=== PATIENT | male | born 1980 | race Caucasian/White ===

== ENCOUNTER 2018-10-28 16:24 | Emergency (ER) | payer SELFPAY ==
[2018-10-28] MEDS ORDERED: Ondansetron 4 MG/2 ML SDV IVPUSH ONE (16:47)
[2018-10-28] MEDS ORDERED: Sodium Chloride 0.9% 1,000 ML IV ONE (16:53)
--- NOTE | 2018-10-28 17:01 | EDM.PDOC ---
ED HPI GENERAL MEDICAL PROBLEM - General Chief Complaint: Abdominal Pain Stated Complaint: ABDOMINAL PAIN Time Seen by Provider: 10/28/18 16:27 Source of Information: Reports: Patient History Limitations: Reports: No Limitations - History of Present Illness INITIAL COMMENTS - FREE TEXT/NARRATIVE: HISTORY AND PHYSICAL: History of present illness: Patient is a 38-year-old male presents to the ED today with concern of right lower quadrant pain over the past 2 days. Patient states he did have a one episode of bright red blood bowel movement on Friday. Patient denies any blood in the stool since then. Patient states his bowel movements have been normal for him and then other than the right lower quadrant pain he hasn't had any other symptoms. He states that the pain comes and goes and currently rates it a 5 out of 10. Patient denies any prior abdominal surgeries. Patient denies any health history. Patient denies fever, chills, chest pain, shortness of breath, or cough. Denies headache, neck stiff ness, change in vision, syncope, or near syncope. Denies nausea, vomiting, diarrhea, constipation, or dysuria. Has not noted any blood in urine or stool. Patient has been eating and drinking appropriately. Review of systems: As per history of present illness and below otherwise all systems reviewed and negative. Past medical history: As per history of present illness and as reviewed below otherwise noncontributory. Surgical history: As per history of present illness and as reviewed below otherwise noncontributory. Social history: See social history for further information Family history: As per history of present illness and as reviewed below otherwise noncontributory. Physical exam: General: Patient is alert, oriented, and in no acute distress. Patient sitting comfortably on exam table. HEENT: Atraumatic, normocephalic, pupils equal and reactive bilaterally, negative for conjunctival pallor or scleral icterus, mucous membranes moist, TMs normal bilaterally, throat clear, neck supple, nontender, trachea midline. No drooling or trismus noted. No meningeal signs. No hot potato voice noted. Lungs: Clear to auscultation, breath sounds equal bilaterally, chest nontender. Heart: S1S2, regular rate and rhythm without overt murmur Abdomen: Soft, nondistended. Mild pain to palpation of the right lower quadrant without guarding. Negative for masses or hepatosplenomegaly. Negative for costovertebral tenderness. Pelvis: Stable nontender. Genitourinary: Deferred. Rectal: Deferred. Skin: Intact, warm, dry. No lesions or rashes noted. Extremities: Atraumatic, negative for cords or calf pain. Neurovascular unremarkable. Neuro: Awake, alert, oriented. Cranial nerves II through XII unremarkable. Cerebellum unremarkable. Motor and sensory unremarkable throughout. Exam nonfocal. Notes: Dr. Toure verbally involved in patient care. Patient denies anal intercourse / penetration. Discussed cyst of kidney and follow up with primary care, Consult to Dr. Villaseñor. Per Dr. Villaseñor, start patient on Flagyl, obtain stool cultures outpatient and have results sent to her for follow up with her in 2 weeks. Patient provided with stool collection supplies. Discussed this with patient. Voices understanding and is agreeable to plan of care. Denies any further questions or concerns at this time. Diagnostics: CBC, CMP, UA, EKG, lipase, abdominal pelvic CT, Hemoccult Therapeutics: Normal saline, Zofran Prescription: Flagyl, Stool Studies script and supplies Impression: Rectum thickening, probable proctitis Plan: 1. Take medication as prescribed. Stool study collection supplies have been provided to you, return these to the outpatient lab after sample. 2. Follow-up with general surgery, Dr. Villaseñor, as discussed. Return to the ED as needed and as discussed. 3. Tylenol as directed for pain and discomfort. Definitive disposition and diagnosis as appropriate pending reevaluation and review of above. lower abdomen Pain Score (Numeric/FACES): 6 - Related Data Allergies Allergy/AdvReac Type Severity Reaction Status Date / Time No Known Allergies Allergy Verified 10/28/18 16:34 Home Meds: Home Meds Pantoprazole [ProTONIX] 40 mg PO DAILY 10/28/18 [History] atorvaSTATin [Lipitor] 20 mg PO DAILY 10/28/18 [History] Past Medical History Cardiovascular History: Reports: High Cholesterol Gastrointestinal History: Reports: GERD, Pancreatitis Hematologic History: Reports: Anemia Social & Family History - Family History Family Medical History: Noncontributory - Tobacco Use Smoking Status *Q: Never Smoker - Caffeine Use Caffeine Use: Reports: None - Recreational Drug Use Recreational Drug Use: No ED ROS GENERAL - Review of Systems Review Of Systems: ROS reveals no pertinent complaints other than HPI. ED EXAM, GI/ABD - Physical Exam Exam: See Below (See dictation) Course - Vital Signs Last Recorded V/S: Last Vital Signs Temp 36.1 C 10/28/18 16:32 Pulse 87 10/28/18 18:05 Resp 18 10/28/18 16:32 BP 122/73 10/28/18 18:05 Pulse Ox 98 10/28/18 18:05 - Orders/Labs/Meds Orders: Active Orders 24 hr Category Date Time Status EKG Documentation Completion [RC] STAT Care 10/28/18 16:54 Active Hemoccult [OCCULT BLOOD DIAGNOSTIC] [OP] Stat Lab 10/28/18 16:54 Ordered Labs: Laboratory Tests 10/28/18 10/28/18 10/28/18 Range/Units 16:57 16:57 17:06 WBC 5.02 (4.0-11.0) K/uL RBC 4.96 (4.50-5.90) M/uL Hgb 15.5 (13.0-17.0) g/dL Hct 44.0 (38.0-50.0) % MCV 88.7 (80.0-98.0) fL MCH 31.3 (27.0-32.0) pg MCHC 35.2 (31.0-37.0) g/dL RDW Std Deviation 38.5 (28.0-62.0) fl RDW Coeff of Hardik 12 (11.0-15.0) % Plt Count 268 (150-400) K/uL MPV 8.90 (7.40-12.00) fL Neut % (Auto) 51.5 (48.0-80.0) % Lymph % (Auto) 35.3 (16.0-40.0) % Haakon % (Auto) 11.6 (0.0-15.0) % Eos % (Auto) 1.0 (0.0-7.0) % Baso % (Auto) 0.6 (0.0-1.5) % Neut # (Auto) 2.6 (1.4-5.7) K/uL Lymph # (Auto) 1.8 (0.6-2.4) K/uL Haakon # (Auto) 0.6 (0.0-0.8) K/uL Eos # (Auto) 0.1 (0.0-0.7) K/uL Baso # (Auto) 0.0 (0.0-0.1) K/uL Nucleated RBC % 0.0 /100WBC Nucleated RBCs # 0 K/uL Sodium 135 L (136-148) mmol/L Potassium 4.2 (3.5-5.1) mmol/L Chloride 100 (98-107) mmol/L Carbon Dioxide 25.3 (21.0-32.0) mmol/L BUN 13 (7.0-18.0) mg/dL Creatinine 1.1 (0.8-1.3) mg/dL Est Cr Clr Drug Dosing 94.02 mL/min Estimated GFR (MDRD) > 60.0 ml/min Glucose 91 (74-106) mg/dL Calcium 9.3 (8.5-10.1) mg/dL Total Bilirubin 0.8 (0.2-1.0) mg/dL AST 35 (15-37) IU/L ALT 77 H (14-63) IU/L Alkaline Phosphatase 100 (46-116) U/L Total Protein 8.2 (6.4-8.2) g/dL Albumin 4.6 (3.4-5.0) g/dL Globulin 3.6 (2.6-4.0) g/dL Albumin/Globulin Ratio 1.3 (0.9-1.6) Lipase 121 (73-393) U/L Urine Color YELLOW Urine Appearance CLEAR Urine pH 6.0 (5.0-8.0) Ur Specific [place] >= 1.030 (1.001-1.035) Urine Protein NEGATIVE (NEGATIVE) mg/dL Urine Glucose (UA) NEGATIVE (NEGATIVE) mg/dL Urine Ketones NEGATIVE (NEGATIVE) mg/dL Urine Occult Blood NEGATIVE (NEGATIVE) Urine Nitrite NEGATIVE (NEGATIVE) Urine Bilirubin NEGATIVE (NEGATIVE) Urine Urobilinogen 0.2 (<2.0) EU/dL Ur Leukocyte Esterase NEGATIVE (NEGATIVE) Meds: Medications Discontinued Medications Generic Name Dose Route Start Last Admin Trade Name Freq PRN Reason Stop Dose Admin Sodium Chloride 1,000 mls @ 999 mls/hr 10/28/18 16:53 10/28/18 17:04 Normal Saline IV 10/28/18 17:53 999 mls/hr BOLUS ONE Administration Iopamidol 100 ml 10/28/18 17:50 10/28/18 17:50 Isovue Multipack-370 (76%) IVPUSH 10/28/18 17:51 100 ml ONETIME STA Administration Ondansetron HCl 4 mg 10/28/18 16:47 10/28/18 17:05 Zofran IVPUSH 10/28/18 16:48 Not Given ONETIME ONE Departure - Departure Time of Disposition: 19:11 Disposition: Home, Self-Care 01 Clinical Impression: Proctitis - Discharge Information Instructions: Proctitis Referrals: PCP,None [Primary Care Provider] - Forms: ED Department Discharge Additional Instructions: The following information is given to patients seen in the emergency department who are being discharged to home. This information is to outline your options for follow-up care. We provide all patients seen in our emergency department with a follow-up referral. The need for follow-up, as well as the timing and circumstances, are variable depending upon the specifics of your emergency department visit. If you don't have a primary care physician on staff, we will provide you with a referral. We always advise you to contact your personal physician following an emergency department visit to inform them of the circumstance of the visit and for follow-up with them and/or the need for any referrals to a consulting specialist. The emergency department will also refer you to a specialist when appropriate. This referral assures that you have the opportunity for follow-up care with a specialist. All of these measure are taken in an effort to provide you with optimal care, which includes your follow-up. Under all circumstances we always encourage you to contact your private physician who remains a resource for coordinating your care. When calling for follow-up care, please make the office aware that this follow-up is from your recent emergency room visit. If for any reason you are refused follow-up, please contact the [facility] Emergency Department at and asked to speak to the emergency department charge nurse. [facility] [address] [place] [id number] [facility] [address] [place] [address], [address] [place] [address] 1. Take medication as prescribed. Stool study collection supplies have been provided to you, return these to the outpatient lab after sample. 2. Follow-up with general surgery, Dr. Villaseñor, as discussed. Return to the ED as needed and as discussed. 3. Tylenol as directed for pain and discomfort. - My Orders Last 24 Hours: My Active Orders 10/28/18 16:54 EKG Documentation Completion [RC] STAT Hemoccult [OCCULT BLOOD DIAGNOSTIC] [OP] Stat - Assessment/Plan Last 24 Hours: My Active Orders 10/28/18 16:54 EKG Documentation Completion [RC] STAT Hemoccult [OCCULT BLOOD DIAGNOSTIC] [OP] Stat
[2018-10-28 17:28] LABS: CHLORIDE,CL 100 mmol/L (98-107); SODIUM,NA 135 mmol/L (136-148)
[2018-10-28] MEDS ORDERED: Iopamidol 755 MG/ML 500 ML Multipack Bottle IVPUSH STA (17:50)
--- NOTE | 2018-10-28 18:18 | CT ---
INDICATION: Right lower quadrant pain with bloody stool TECHNIQUE: CT Abdomen and pelvis with i.v. contrast. Coronal and sagittal reformats were obtained. CONTRAST: 100 mL Isovue 370 COMPARISON: None FINDINGS: Lower chest: Unremarkable. Liver: Unremarkable. Spleen: Unremarkable. Pancreas: Unremarkable. Gallbladder: Unremarkable. Kidney: There is a 2.4 cm cyst present in the upper pole of the left kidney. Adrenal: Unremarkable. Bowel: Mild wall thickening of the rectum is present. The appendix is normal in appearance and size. Vascular: Unremarkable. Lymph: Unremarkable. Peritoneum: Unremarkable. No pneumoperitoneum is seen. No significant ascites is noted. Pelvis: The bladder is decompressed and difficult to evaluate due to suspect an abnormal thickening. Soft tissue: Unremarkable. Bone: Unremarkable for age. IMPRESSION: 1. Mild wall thickening of the rectum is present. Proctitis is suspected and followup imaging is recommended to document resolution. 2. The bladder is decompressed and difficult to evaluate due to suspect an abnormal thickening. Correlation with urinalysis is recommended to exclude cystitis or urinary tract infection. Dictated by Juan José Valdes MD @ 10/28/2018 6:14:28 PM Please note that all CT scans at this facility use dose modulation, iterative reconstruction, and/or weight-based dosing when appropriate to reduce radiation dose to as low as reasonably achievable. Dictated by: Juan José Valdes MD @ 10/28/2018 18:17:02 (Electronically Signed)
[2018-10-28 19:05] VITALS: BP 129/76
== END 2018-10-28 19:19 | disposition home or self-care (01) ==
LOC: MW.ED 16:24
DX: K62.89 Other specified diseases of anus and rectum (principal); E78.00 Pure hypercholesterolemia, unspecified; K21.9 Gastro-esophageal reflux disease without esophagitis; Z79.899 Other long term (current) drug therapy
CPT/HCPCS: 36415; 74177; 80053; 81003; 83690; 85025; 93005; 96360; 99284; J7040; Q9967